=== PATIENT | female | born 1925 | race Caucasian/White ===

== ENCOUNTER 2016-08-01 13:10 | Emergency (ER) | payer MEDICARE, OTHER ==
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
== END 2016-08-01 16:30 | disposition home or self-care (01) ==
LOC: ER 13:10
PROC: 0HQLXZZ Repair Left Lower Leg Skin, External Approach (ICD-10-PCS; principal; 2016-08-01)
DX: S81.812A Laceration without foreign body, left lower leg, initial encounter (principal); S00.93XA Contusion of unspecified part of head, initial encounter; Z23 Encounter for immunization; Z79.82 Long term (current) use of aspirin; I10 Essential (primary) hypertension; Z86.73 Personal history of transient ischemic attack (TIA), and cerebral infarction without residual deficits; W55.32XA Struck by other hoof stock, initial encounter; Y92.009 Unspecified place in unspecified non-institutional (private) residence as the place of occurrence of the external cause

== ENCOUNTER 2016-09-16 12:02 | Emergency (ER) | payer MEDICARE, OTHER ==
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
== END 2016-09-16 16:00 | disposition home or self-care (01) ==
LOC: ER 12:02
DX: S80.02XA Contusion of left knee, initial encounter (principal); S80.01XA Contusion of right knee, initial encounter; W01.0XXA Fall on same level from slipping, tripping and stumbling without subsequent striking against object, initial encounter

== ENCOUNTER 2016-09-27 10:09 | Emergency (ER) | payer MEDICARE, OTHER ==
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
== END 2016-09-27 10:18 | disposition home or self-care (01) ==
LOC: ER 10:09
DX: L03.116 Cellulitis of left lower limb (principal); E03.9 Hypothyroidism, unspecified; Z88.6 Allergy status to analgesic agent; Z79.899 Other long term (current) drug therapy; Z90.710 Acquired absence of both cervix and uterus; Z98.890 Other specified postprocedural states